=== PATIENT | male | born 1940 | race Caucasian/White ===

== ENCOUNTER → 2019-05-12 | Outpatient (CLI) | payer MEDICARE, OTHER ==
--- NOTE | 2019-05-12 15:52 | KCIC ---
Exam : Carotid Duplex with Grayscale Ultrasound and Spectral and Color Doppler Analysis 05/12/2019 2:14 PM Clinical Indications: Syncopal episode. Pulsatile sensations in the left ear. Comparison study: None available. PQRS Compliance Statement - Stenosis calculations for CT, MR and conventional angiography are based upon measurement of the distal ICA diameter in accordance with the NASCET methodology. Stenosis calculations for carotid ultrasound studies are derived from validated velocity criteria which are known to correlate with the NASCET methodology. Findings: The common, internal and external carotid arteries were examined by grayscale, color and spectral Doppler ultrasound. Atherosclerotic plaquing noted in the bilateral carotid bulbs. The following are the velocities and ratios in the carotid arteries on both sides: RIGHT ICA PV: 92cm/sec RIGHT CCA PV: 112cm/sec RIGHT ICA ED: 9 cm/sec RIGHT IC/CCPV: less than 2 RIGHT VERTEBRAL: antegrade flow LEFT ICA PV: 110cm/sec LEFT CCA PV: 93cm/sec LEFT ICA ED: 36cm/sec LEFT IC/CCPV: less than 2 LEFT VERTEBRAL: antegrade flow <50% ICA Stenosis: PSV < 125cm/s (EDV < 40cm/s; SVR < 2.0) 50-69% ICA Stenosis: PSV < 125-229cm/s (EDV 40-99cm/s; SVR 2.0-3.9) >70% ICA Stenosis: PSV > 230cm/s (EDV >100cm/s; SVR >4.0) Impression: Mild atherosclerotic vascular calcification of the carotid bulbs with less than 50% stenosis of the internal carotid arteries bilaterally Electronically signed by: Rogelio Roca MD (05/12/2019 2:21 PM) [id number]
== END | disposition home or self-care (01) ==
LOC: KCIC US 09:49
PROVIDERS: ATTEND Family Medicine
DX: I65.23 Occlusion and stenosis of bilateral carotid arteries (principal)
CPT/HCPCS: 93880

== ENCOUNTER → 2019-05-21 | Outpatient (CLI) | payer MEDICARE, OTHER ==
--- NOTE | 2019-05-21 16:56 | KCIC ---
BRAIN W/O CONTRAST History: Syncope. Left-sided hearing loss. Technique: Multiplanar, multi sequential MR imaging was performed of the brain without contrast. T2 high-resolution and T1 internal auditory canal sequences were added Comparison: None Findings: No acute infarct. No intracranial hemorrhage. No mass effect. No hydrocephalus. Mild brain parenchymal volume loss. 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 No signal abnormality or expansion of the internal auditory canal or cerebellopontine angles. Evaluation degraded without contrast. Imaged orbits are unremarkable. Moderate right maxillary sinus mucosal thickening with fluid. Partial opacification and complete opacification of ethmoid air cells, right greater than left. Opacification of the right frontal sinus. Diffuse mucosal thickening. Mastoid air cells are clear. Impression: 1. No acute intracranial abnormality. 2. 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 3. Extensive right-sided paranasal sinus disease, can be seen with acute sinusitis in the appropriate clinical setting. Electronically signed by: Raoul Reyna DO (05/21/2019 4:53 PM) [id number]
== END | disposition home or self-care (01) ==
LOC: KCIC MRI 12:54
PROVIDERS: ATTEND Family Medicine
DX: I63.81 Other cerebral infarction due to occlusion or stenosis of small artery (principal); H91.22 Sudden idiopathic hearing loss, left ear
CPT/HCPCS: 70551

== ENCOUNTER → 2019-05-21 | Outpatient (CLI) | payer MEDICARE, OTHER ==
--- NOTE | 2019-05-22 13:37 | CARD ---
MR#: [id number] Date of Study: 05/21/2019 Ordering Physician: DEVEN PATEL, Referring Physician: DEVEN PATEL, Tech: Dev Wheat [facility] APPROVED REPORT EXAM: Two-dimensional and M-mode echocardiogram with Doppler and color Doppler. Other Information Quality : AverageHR: 82bpm INDICATION Murmur Syncope 2D DIMENSIONS RVDd3.3 (2.9-3.5cm)IVSd1.6 (0.7-1.1cm) Aortic Root(2D)4.3 (2.0-3.7cm)LVDd4.3 (3.9-5.9cm) LVOT Diameter2.3 (1.8-2.4cm)PWd1.2 (0.7-1.1cm) LVDs3.5 (2.5-4.0cm)FS (%) 19.2 % SV34.0 ml Aortic Valve AoV Peak Emanuel.165.7cm/Shayy Peak GR.12.2mmHg AI P 1/2 [id number] Mitral Valve MV E Lfuktuhl48.9cm/sMV DECEL JRRL089me MV A Hhbbaonj91.5cm/sE/A Ratio0.8 MV A Hzibuoyz295or Pulmonary Valve PV Peak Bodgnrth25.8cm/s Tricuspid Valve TR P. Mecaahle617bz/sRAP RFXHSTYJ9mtKd TR Peak Gr.85vrZhIPPY52inSk LEFT VENTRICLE The left ventricle is normal size. There is mild left ventricular hypertrophy. The left ventricular s ystolic function is normal and the ejection fraction is within normal range. The Ejection Fraction is 55-60%. There is normal LV segmental wall motion. Transmitral Doppler flow pattern is Grade I-abnorm al relaxation pattern. There is no ventricular septal defect visualized. RIGHT VENTRICLE The right ventricle is normal size. The right ventricular systolic function is normal. ATRIA The left atrium size is normal. The right atrium is mildly dilated. The interatrial septum is intact with no evidence for an atrial septal defect or patent foramen ovale as noted on 2-D or Doppler imagi ng. AORTIC VALVE The aortic valve is normal in structure and function. Doppler and Color Flow revealed mild aortic reg urgitation. There is no significant aortic valvular stenosis. MITRAL VALVE The mitral valve is normal in structure and function. There is no mitral valve stenosis. Doppler and Color Flow revealed no mitral valve regurgitation noted. TRICUSPID VALVE The tricuspid valve is normal in structure and function. Doppler and Color Flow revealed trace tricus pid regurgitation. PAP is estimated at 25 mmHg. There is no tricuspid valve stenosis. PULMONIC VALVE The pulmonic valve is not well visualized. Doppler and Color Flow revealed no pulmonic valvular regur gitation. There is no pulmonic valvular stenosis. GREAT VESSELS The aortic root is mildly enlarged at 4.3 cm. The ascending aorta is dilated at 5.0 cm. Aortic arch a ppears normal and measures 3.1 cm. The IVC is normal in size and collapses >50% with inspiration. PERICARDIAL EFFUSION There is no pleural effusion. There is no evidence of significant pericardial effusion. Critical Notification Critical Value: No <Conclusion> The left ventricle is normal size. The left ventricular systolic function is normal and the ejection fraction is within normal range. The Ejection Fraction is 55-60%. There is mild left ventricular hypertrophy. Doppler and Color Flow revealed mild aortic regurgitation. There is no significant aortic valvular stenosis. Doppler and Color Flow revealed no mitral valve regurgitation noted. Doppler and Color Flow revealed trace tricuspid regurgitation. PAP is estimated at 25 mmHg. The ascending aorta is dilated at 5.0 cm. Aortic arch appears normal and measures 3.1 cm. Signed by : Bola Lobato MD Electronically Approved : 05/21/2019 15:49:45
== END | disposition home or self-care (01) ==
LOC: ECHO 14:42
PROVIDERS: ATTEND Family Medicine
DX: I35.1 Nonrheumatic aortic (valve) insufficiency (principal); I51.7 Cardiomegaly
CPT/HCPCS: 93306

== ENCOUNTER → 2019-06-18 | Outpatient (CLI) | payer MEDICARE, OTHER ==
[~2019-06-18] MED LIST: CONTRAST GIVEN. MC PRN; IOHEXOL 350 MG/ML 100 ML VIAL. IV ONE
--- NOTE | 2019-06-18 11:00 | RAD ---
CT angiography of the chest and abdomen 06/18/2019 INDICATION: Syncope. History of ascending aortic dilatation. COMPARISON STUDY: CT chest with contrast January 03, 2009 TECHNIQUE: Multidetector CT imaging of the chest and abdomen was performed following the administration of IV contrast. 3-D reconstructions of thoracic and abdominal vasculature were created on an independent workstation and reviewed. FINDINGS: Motion artifact is noted within the proximal ascending thoracic aorta. The ascending thoracic aorta is ectatic measuring 5 cm at the level of the main pulmonary artery. The thoracic aorta measures approximately 4.2 cm the sinotubular junction. No evidence of dissection is identified. Arch vessels are patent. The descending thoracic aorta returns to normal caliber. 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 There is an accessory artery arising from the superior mesenteric artery that anastomosis with a hypertrophic gastroduodenal artery. This is the dominant supply to the hepatic arteries. The SMA is otherwise patent. The ANALILIA is patent. There is no abdominal aortic dissection or aneurysm. Heart is mildly enlarged. No pericardial effusion is identified. No pathologically enlarged mediastinal adenopathy is seen. There is a moderate hiatal hernia. There is no pneumothorax, pleural effusion, or acute appearing infiltrate identified. Liver is mildly low in attenuation. Hepatic steatosis not excluded. Prior cholecystectomy noted. Spleen, adrenal glands, pancreas are grossly unremarkable. Renal cortical thinning is noted bilaterally. Exophytic renal cysts noted on the left partially visualized bowel demonstrates no obstruction or gross inflammatory change. No acute osseous abnormalities are identified. IMPRESSION: Ascending thoracic aortic aneurysm measuring up to 5.1 cm in transverse diameter. Recommend imaging surveillance, abdomen possibly surgical consultation, particularly if patient is symptomatic, or has history of connective-tissue disorder. CT DOSING PQRS STATEMENT: One or more of the following individualized dose reduction techniques were utilized for this examination: 1. Automated exposure control 2. Adjustment of the mA and/or kV according to patient size 3. Use of iterative reconstruction technique Electronically signed by: Rogelio Roca MD (06/18/2019 10:57 AM) [id number]
[2019-06-18 17:17] LABS: CREATININE 1.1 mg/dL (0.7-1.3); GFR 65.1; POTASSIUM 4.7 mmol/L (3.5-5.1)
== END | disposition home or self-care (01) ==
LOC: CT 07:57
PROVIDERS: ATTEND Internal Medicine Cardiovascular Disease
DX: I71.2 Thoracic aortic aneurysm, without rupture (principal); I51.7 Cardiomegaly; K44.9 Diaphragmatic hernia without obstruction or gangrene; N28.1 Cyst of kidney, acquired; K76.0 Fatty (change of) liver, not elsewhere classified; Z90.49 Acquired absence of other specified parts of digestive tract
CPT/HCPCS: 36415; 71275; 74175; 80048; Q9967

== ENCOUNTER → 2019-10-01 | Outpatient (CLI) | payer MEDICARE, OTHER | END | disposition home or self-care (01) | LOC: PF 07:52 | DX: I71.4 Abdominal aortic aneurysm, without rupture (principal) | CPT/HCPCS: 94010; 94726; 94729 ==